=== PATIENT | female | born 1990 | race Caucasian/White ===

== ENCOUNTER → 2016-04-28 | Outpatient (REF) | payer BC | LOC: M LAB REF 18:03 | PROVIDERS: ATTEND Family Medicine | DX: Z12.4 Encounter for screening for malignant neoplasm of cervix (principal) ==

== ENCOUNTER → 2016-05-07 | Outpatient (REF) | payer BC | LOC: M LAB REF 10:06 | PROVIDERS: ATTEND Nurse Practitioner Family | DX: J02.9 Acute pharyngitis, unspecified (principal) ==

== ENCOUNTER → 2016-08-24 | Outpatient (REF) | payer BC | LOC: M LAB REF 16:20 | PROVIDERS: ATTEND Physician Assistant | DX: N39.0 Urinary tract infection, site not specified (principal) ==

== ENCOUNTER → 2016-10-09 | Outpatient (CLI) | payer BC ==
[2016-10-09 13:06] LABS: BASO % 0.7 % (0.0-1.0); EOS % 0.5 % (0.0-3.0); LARGE UNSTAINED CELL # 0.1 K/mm3 (0.0-0.4); LARGE UNSTAINED CELL % 1.7 % (0.0-4.0); LYMPH # 1.7 K/mm3 (1.5-6.5); LYMPH % 27.8 % (24.0-44.0); MEAN CORPUSCULAR HEMOGLOBIN 30.4 pg (27.0-33.0); MEAN CORPUSCULAR HGB CONC 33.5 g/dl (32.0-36.5); MEAN CORPUSCULAR VOLUME 90.7 fl (80.0-96.0); MONO # 0.5 K/mm3 (0.0-0.8); MONO % 8.3 % (0.0-5.0); NEUTROPHILS # 3.6 K/mm3 (1.8-7.7); NEUTROPHILS % 60.9 % (36.0-66.0); PLATELET COUNT, AUTOMATED 295 k/mm3 (150-450); WHITE BLOOD COUNT 5.8 K/mm3 (4.0-10.0)
[2016-10-09 13:31] LABS: ALBUMIN 4.2 GM/DL (3.2-5.2); ALKALINE PHOSPHATASE 39 U/L (45-117); ALT/SGPT 21 U/L (12-78); ANION GAP 6 MEQ/L (8-16); AST/SGOT 11 U/L (15-37); BILIRUBIN,TOTAL 0.5 MG/DL (0.2-1.0); BLOOD UREA NITROGEN 15 MG/DL (7-18); CALCIUM LEVEL 9.1 MG/DL (8.5-10.1); CARBON DIOXIDE LEVEL 25 MEQ/L (21-32); CHLORIDE LEVEL 105 MEQ/L (98-107); CREATININE FOR GFR 0.97 MG/DL (0.55-1.02); FREE T4 1.26 NG/DL (0.76-1.46); GLOMERULAR FILTRATION RATE > 60.0 (>60); GLUCOSE, FASTING 76 MG/DL (70-105); POTASSIUM SERUM 4.7 MEQ/L (3.5-5.1); SODIUM LEVEL 136 MEQ/L (136-145); TOTAL PROTEIN 7.2 GM/DL (6.4-8.2)
== END ==
LOC: M SMT 09:51
PROVIDERS: ATTEND Physician Assistant Medical
DX: F50.81 Binge eating disorder (principal); Z13.0 Encounter for screening for diseases of the blood and blood-forming organs and certain disorders involving the immune mechanism; Z13.29 Encounter for screening for other suspected endocrine disorder

== ENCOUNTER → 2016-12-11 | Outpatient (REF) | payer BC ==
[~2016-12-11] MED LIST: ALBU17IN2 INH; FLON1SPR; IPRASOL4 INH; PRED20TA PO; SYMB16INH INH; VYVA30CA4 PO; WELLTAB40 PO; ZYRT10TA2 PO
== END ==
LOC: M LAB REF 12:03
PROVIDERS: ATTEND Physician Assistant Medical
DX: N30.00 Acute cystitis without hematuria (principal)

== ENCOUNTER 2017-01-15 00:02 | Emergency (ER) | payer BC ==
[~2017-01-15] VITALS: Ht 167.6 cm; Wt 64.0 kg
[2017-01-15] MEDS ORDERED: SYMB16INH INH (01:02)
[2017-01-15] MEDS ORDERED: FLON1SPR (01:02)
[2017-01-15] MEDS ORDERED: ALBU17IN2 INH (01:02)
[2017-01-15] MEDS ORDERED: VYVA30CA4 PO (01:02)
[2017-01-15] MEDS ORDERED: ZYRT10TA2 PO (01:02)
[2017-01-15] MEDS ORDERED: WELLTAB40 PO (01:02)
[2017-01-15] MEDS ORDERED: IPRATROPIUM 0.5MG/ALBUTEROL 2.5MG INH SOL UD 3ML (DUONEB)(J7620) NEB ONE (01:45)
[2017-01-15] MEDS ORDERED: guaiFENesin SYRUP 200 MG/10 ML UDC PO ONE (01:45)
[2017-01-15] MEDS ORDERED: methylPREDNISolone INJ 125 MG/2 ML VIAL (J2930) IM ONE (01:45)
[2017-01-15 01:59] VITALS: BP 117/75
[2017-01-15] MEDS ORDERED: IPRASOL4 INH (02:22)
[2017-01-15] MEDS ORDERED: PRED20TA PO (02:22)
== END 2017-01-15 02:30 | disposition home or self-care (01) ==
LOC: M ED 00:02
DX: J98.01 Acute bronchospasm (principal); R51 Headache; J30.89 Other allergic rhinitis; J30.2 Other seasonal allergic rhinitis; Z79.899 Other long term (current) drug therapy
CPT/HCPCS: 94640; 96372; 99282; J2930

== ENCOUNTER → 2017-01-22 | Outpatient (REF) | payer BC | LOC: M LAB REF 16:12 | PROVIDERS: ATTEND Family Medicine | DX: D48.5 Neoplasm of uncertain behavior of skin (principal) ==

== ENCOUNTER → 2017-02-18 | Outpatient (REF) | payer BC ==
[2017-02-18 14:24] LABS: BASO % 0.5 % (0.0-1.0); EOS % 0.7 % (0.0-3.0); IMMATURE GRANULOCYTE % 0.3 % (0-0); LYMPH # 1.6 10^3/uL (1.5-6.5); LYMPH % 27.2 % (24.0-44.0); MEAN CORPUSCULAR HEMOGLOBIN 29.2 pg (27.0-33.0); MEAN CORPUSCULAR VOLUME 88.4 fl (80.0-96.0); MONO # 0.7 10^3/uL (0.0-0.8); MONO % 11.4 % (0.0-5.0); NEUTROPHILS # 3.6 10^3/uL (1.8-7.7); NEUTROPHILS % 59.9 % (36.0-66.0); PLATELET COUNT, AUTOMATED 314 10^3/uL (150-450)
[2017-02-18 14:59] LABS: ALBUMIN 3.9 GM/DL (3.2-5.2); ALKALINE PHOSPHATASE 49 U/L (45-117); ALT/SGPT 23 U/L (12-78); ANION GAP 7 MEQ/L (8-16); AST/SGOT 10 U/L (15-37); BILIRUBIN,TOTAL 0.3 MG/DL (0.2-1.0); BLOOD UREA NITROGEN 15 MG/DL (7-18); CALCIUM LEVEL 9.3 MG/DL (8.5-10.1); CARBON DIOXIDE LEVEL 29 MEQ/L (21-32); CHLORIDE LEVEL 105 MEQ/L (98-107); CREATININE FOR GFR 0.86 MG/DL (0.55-1.02); GLOMERULAR FILTRATION RATE > 60.0 (>60); GLUCOSE, FASTING 87 MG/DL (70-105); POTASSIUM SERUM 4.1 MEQ/L (3.5-5.1); SODIUM LEVEL 141 MEQ/L (136-145); TOTAL PROTEIN 6.9 GM/DL (6.4-8.2)
[2017-02-20 00:12] LABS: Lyme Disease IgG/IgM Antibodie <0.91 ISR (0.00-0.90); Lyme Disease IgM Ab Quantitati <0.80 index (0.00-0.79)
== END ==
LOC: M LAB REF 13:25
PROVIDERS: ATTEND Physician Assistant
DX: R51 Headache (principal)

== ENCOUNTER → 2017-04-09 | Outpatient (CLI) | payer BC ==
--- NOTE | 2017-04-09 09:11 | REP ---
RIGHT UPPER QUADRANT ULTRASOUND: Real-time sonographic evaluation of the right upper quadrant performed. Gallbladder demonstrates intraluminal sludge and stones. There is mild diffuse gallbladder wall thickening up to 4 mm. There is no free fluid. There is no intrahepatic or extrahepatic biliary dilatation, common bile duct measuring 4 mm in diameter. Liver and pancreas demonstrate homogenous echotexture with no definite mass. Right kidney demonstrates no hydronephrosis or nephrolithiasis with normal size at 10.9 cm in length. Visualized abdominal aorta is normal in caliber. IMPRESSION: Sludge and stones in the gallbladder without free fluid. There is mild diffuse gallbladder wall thickening. No biliary dilatation. Signed by Riaz Calzada MD 04/09/2017 04:56 P
== END ==
LOC: M RAD 08:02
PROVIDERS: ATTEND Physician Assistant
DX: R10.9 Unspecified abdominal pain (principal)

== ENCOUNTER 2017-05-25 06:35 | Day surgery (SDC) | payer BC ==
[2017-05-25] MEDS ORDERED: LIDOCAINE 1% MDV 20ML VIAL SQ (06:45)
[2017-05-25] MEDS: LR 1,000 ML IV (06:59)
[2017-05-25 07:05] LABS: CONTROL LINE UCG INT CTR LINE PRESENT; URINE PREG TEST NEGATIVE (NEGATIVE)
[2017-05-25] MEDS ORDERED: PROPOFOL 200 MG/20 ML VIAL As Ordered (07:18)
[2017-05-25] MEDS ORDERED: LIDOCAINE 2% INJ 100 MG/5 ML SDV (FOR ANES.) As Ordered (07:18)
[2017-05-25] MEDS ORDERED: ROCURONIUM BROMIDE 50 MG/5 ML VIAL As Ordered (07:18)
[2017-05-25] MEDS ORDERED: fentaNYL 250 MCG/5 ML INJECTION (J3010) As Ordered (07:18)
[2017-05-25] MEDS ORDERED: MIDAZOLAM INJ 2 MG/2 ML VIAL (J2250) As Ordered (07:19)
[2017-05-25] MEDS: CEFAZOLIN SOD 1 GM in APPROPRIATE DILUENT 1 EA IV (07:30)
[2017-05-25] MEDS ORDERED: ONDANSETRON 4MG/2ML VIAL (J2405) As Ordered (07:44)
[2017-05-25] MEDS ORDERED: KETOROLAC 60 MG/2 ML VIAL (J1885) As Ordered (07:44)
[2017-05-25] MEDS ORDERED: dexameTHASONE 4 MG/ML 1ML VIAL (J1100) As Ordered (07:44)
[2017-05-25] MEDS ORDERED: PHENYLephrine HCL 500 MCG/5 ML (100MCG/ML) SYRINGE (J2370) As Ordered (07:49)
[2017-05-25] MEDS ORDERED: GLYCOPYRROLATE INJ 0.2 MG/ML 2 ML VIAL As Ordered (07:50)
[2017-05-25] MEDS ORDERED: NEOSTIGMINE 10 MG/10 ML VIAL (J2710) As Ordered (07:50)
[2017-05-25] MEDS ORDERED: ePHEDrine INJ 50 MG/ML VIAL As Ordered (07:59)
[2017-05-25] MEDS: BUPIVACAINE HCL 0.25% 10 ML VIAL As Ordered (08:21)
[2017-05-25] MEDS: LIDOCAINE W/EPINEPHRINE 1% 20ML VIAL As Ordered (08:21)
[2017-05-25] MEDS ORDERED: HYDROmorphone HCL 2 MG/ML 1ML VIAL (J1170) As Ordered (08:24)
[2017-05-25] MEDS ORDERED: fentaNYL 100 MCG/2 ML INJECTION (J3010) IV (09:15)
[2017-05-25] MEDS ORDERED: LR 1,000 ML IV ×2 (09:15)
[2017-05-25] MEDS ORDERED: ONDANSETRON 4MG/2ML VIAL (J2405) IV ×2 (09:15)
[2017-05-25] MEDS ORDERED: MORPHINE 2 MG/ML 1ML SYRINGE IV (09:15)
[2017-05-25] MEDS ORDERED: PERCOCET 5MG/325MG TAB PO (09:15)
[2017-05-25] MEDS: NORCO, ANEXSIA 5/325MG TABLET (HYDROcodone/ACETAMINOPHEN) PO (09:18)
[2017-05-25] MEDS ORDERED: NEOSTIGMINE 10 MG/10 ML VIAL (J2710) (11:22)
[2017-05-25] MEDS ORDERED: KETOROLAC 30 MG/ML VIAL (J1885) IV (14:00)
== END 2017-05-25 11:30 | disposition home or self-care (01) ==
LOC: M SDC 06:35
DX: K80.10 Calculus of gallbladder with chronic cholecystitis without obstruction (principal); F32.9 Major depressive disorder, single episode, unspecified; F90.9 Attention-deficit hyperactivity disorder, unspecified type; M12.9 Arthropathy, unspecified; J45.909 Unspecified asthma, uncomplicated; Z79.899 Other long term (current) drug therapy; Z79.3 Long term (current) use of hormonal contraceptives
CPT/HCPCS: 47562

== ENCOUNTER → 2017-07-24 | Outpatient (REF) | payer BC | LOC: M LAB REF 09:54 | DX: N39.0 Urinary tract infection, site not specified (principal) | CPT/HCPCS: 87186 ==

== ENCOUNTER → 2018-01-24 | Outpatient (CLI) | payer BC | LOC: M WUC 11:25 | DX: J06.9 Acute upper respiratory infection, unspecified (principal); E55.9 Vitamin D deficiency, unspecified ==

== ENCOUNTER → 2018-02-10 | Outpatient (CLI) | payer BC ==
[2018-02-10 13:30] LABS: HCG, SERUM QUANTITATIVE < 1.0 MIU/ML
== END ==
LOC: M ADAMS 09:13
DX: N91.2 Amenorrhea, unspecified (principal)
CPT/HCPCS: 84702

== ENCOUNTER → 2018-03-23 | Outpatient (REF) | payer BC | LOC: M LAB REF 12:41 | DX: R30.0 Dysuria (principal) | CPT/HCPCS: 87086 ==

== ENCOUNTER → 2018-03-24 | Outpatient (CLI) | payer BC ==
[2018-03-24 13:58] LABS: BASO % 0.5 % (0.0-1.0); EOS # 0.2 10^3/uL (0.0-0.50); EOS % 3.1 % (0.0-3.0); HEMATOCRIT 41.8 % (36.0-47.0); HEMOGLOBIN 13.8 g/dl (12.0-15.5); IMMATURE GRANULOCYTE % 0.3 % (0-3.0); LYMPH # 2.1 10^3/uL (1.5-6.5); LYMPH % 26.4 % (24.0-44.0); MEAN CORPUSCULAR VOLUME 90.9 fl (80.0-96.0); MONO # 0.7 10^3/uL (0.0-0.8); MONO % 9.4 % (0.0-5.0); NEUTROPHILS # 4.7 10^3/uL (1.8-7.7); NEUTROPHILS % 60.3 % (36.0-66.0); PLATELET COUNT, AUTOMATED 352 10^3/uL (150-450); RED CELL DISTRIBUTION WIDTH 11.8 % (11.5-14.5); WHITE BLOOD COUNT 7.8 10^3/uL (4.0-10.0)
[2018-03-24 14:06] LABS: ALBUMIN 3.9 GM/DL (3.2-5.2); ALBUMIN/GLOBULIN RATIO 1.22 (1.00-1.93); ALKALINE PHOSPHATASE 67 U/L (45-117); ALT/SGPT 36 U/L (12-78); ANION GAP 7 MEQ/L (8-16); AST/SGOT 26 U/L (7-37); BILIRUBIN,TOTAL 0.5 MG/DL (0.2-1.0); BLOOD UREA NITROGEN 9 MG/DL (7-18); CALCIUM LEVEL 8.8 MG/DL (8.5-10.1); CARBON DIOXIDE LEVEL 27 MEQ/L (21-32); CHLORIDE LEVEL 105 MEQ/L (98-107); CREATININE FOR GFR 0.77 MG/DL (0.55-1.30); GLOMERULAR FILTRATION RATE > 60.0 (>60); GLUCOSE, FASTING 83 MG/DL (70-100); LIPASE 151 U/L (73-393); POTASSIUM SERUM 4.6 MEQ/L (3.5-5.1); SODIUM LEVEL 139 MEQ/L (136-145); TOTAL PROTEIN 7.1 GM/DL (6.4-8.2)
== END ==
LOC: M SMT 11:18
DX: R10.813 Right lower quadrant abdominal tenderness (principal)
CPT/HCPCS: 83690

== ENCOUNTER → 2019-02-13 | Outpatient (CLI) | payer BC ==
[~2019-02-13] MED LIST changes: +APRITAB; +BUPR150T3 PO; +IPRA0.00 INH; -IPRASOL4 INH; +SPIR50TA4; +ZYRT10CA5 PO; -ZYRT10TA2 PO
--- NOTE | 2019-02-13 11:04 | REP ---
Four views right hand: 02/13/2019. Indication: Right hand pain following trauma. Comparison: None. Findings: There is no acute fracture, subluxation or dislocation. Bony alignment is anatomic. No osseous destructive lesions are present. Impression: No acute fracture. Electronically Signed by Irvin Duran DO 02/13/2019 10:56 A
== END ==
LOC: M ADAMS 08:24
PROVIDERS: ATTEND Physician Assistant
DX: M79.641 Pain in right hand (principal)

== ENCOUNTER → 2019-02-18 | Outpatient (CLI) | payer BC | LOC: M LABDRWAD 08:24 | PROVIDERS: ATTEND Physician Assistant | DX: R11.0 Nausea (principal); R53.83 Other fatigue ==

== ENCOUNTER 2019-03-09 15:12 | Emergency (ER) | payer BC ==
[~2019-03-09] VITALS: Ht 167.6 cm; Wt 80.1 kg
[2019-03-09] MEDS ORDERED: ONDANSETRON 4MG/2ML VIAL (J2405) IV ONE (17:00)
[2019-03-09] MEDS ORDERED: NS 1,000 ML IV ONE (17:00)
[2019-03-09 17:24] LABS: BASO % 0.2 % (0.0-1.0); HEMATOCRIT 39.6 % (36.0-47.0); HEMOGLOBIN 13.3 g/dl (12.0-15.5); LYMPH # 0.5 10^3/uL (1.5-5.0); LYMPH % 7.7 % (24.0-44.0); MEAN CORPUSCULAR HEMOGLOBIN 29.9 pg (27.0-33.0); MEAN CORPUSCULAR HGB CONC 33.6 g/dl (32.0-36.5); MONO # 0.4 10^3/uL (0.0-0.8); MONO % 5.7 % (0.0-5.0); NEUTROPHILS # 5.6 10^3/uL (1.5-8.5); NEUTROPHILS % 86.2 % (36.0-66.0); PLATELET COUNT, AUTOMATED 231 10^3/uL (150-450); RED BLOOD COUNT 4.45 10^6/uL (4.00-5.40); WHITE BLOOD COUNT 6.5 10^3/uL (4.0-10.0)
[2019-03-09 17:56] LABS: ALBUMIN 3.8 GM/DL (3.2-5.2); ALT/SGPT 31 U/L (12-78); BILIRUBIN,DIRECT < 0.1 MG/DL (0.0-0.2); BILIRUBIN,TOTAL 0.4 MG/DL (0.2-1.0); LIPASE 83 U/L (73-393); TOTAL PROTEIN 7.1 GM/DL (6.4-8.2)
[2019-03-09 18:01] LABS: HCG, SERUM QUALITATIVE NEGATIVE (NEGATIVE)
[2019-03-09] MEDS ORDERED: ISOVUE-370 76% 100ML VIAL (Q9967) As Ordered ONE (18:07)
[2019-03-09] MEDS ORDERED: KETOROLAC 30 MG/ML VIAL (J1885) IV ONE (18:15)
--- NOTE | 2019-03-09 19:01 | REPVR ---
PROCEDURE INFORMATION: Exam: CT Abdomen And Pelvis With Contrast Exam date and time: 03/09/2019 6:02 PM Clinical history: 28 years old, female; Abdominal pain; Additional info: Lower abd pain/back pain TECHNIQUE: Imaging protocol: Computed tomography of the abdomen and pelvis with intravenous contrast. Radiation optimization: All CT scans at this facility use at least one of these dose optimization techniques: automated exposure control; mA and/or kV adjustment per patient size (includes targeted exams where dose is matched to clinical indication); or iterative reconstruction. Contrast material: ISOVUE 370; Contrast volume: 100 ml; Contrast route: IV; COMPARISON: No relevant prior studies available. FINDINGS: Lungs: Lung bases appear clear. Heart: The heart is normal in size. Liver: Normal appearing liver. Gallbladder and bile ducts: Surgical clips are noted in the gallbladder fossa and the patient is post cholecystectomy. Normal common bile duct. Pancreas: Normal appearing pancreas. Spleen: Normal spleen. Adrenals: Normal adrenal glands. Kidneys and ureters: Normal kidneys. Stomach and bowel: There are ecretions within loops of small bowel which may be secondary to mild ileus or enteritis. Appendix: Normal-appearing appendix. Small calcification distal end of the appendix. Intraperitoneal space: There is no evidence of pneumoperitoneum. Vasculature: There is opacification of the SMV and SMA. Lymph nodes: Unremarkable. No enlarged lymph nodes. Bladder: Normal urinary bladder. Reproductive: Normal size uterus. There are multiple follicular cysts both ovaries. Bones/joints: There is no evidence of bony abnormality. Soft tissues: Unremarkable. IMPRESSION: 1. Secretions within the small bowel could be the result of mild enteritis. 2. Follicular cysts identified both ovaries. Electronically signed by: Armando El On 03/09/2019 19:00:30 PM
[2019-03-09] MEDS ORDERED: ROBA750T4 PO ×2 (19:40→20:22)
[2019-03-09] MEDS ORDERED: DICY10CA13 PO ×2 (19:40→20:21)
[2019-03-09 19:47] VITALS: BP 138/68
== END 2019-03-09 19:56 | disposition home or self-care (01) ==
LOC: M ED 15:12
DX: R19.7 Diarrhea, unspecified (principal); M54.5 Low back pain; R10.9 Unspecified abdominal pain; N83.01 Follicular cyst of right ovary; N83.02 Follicular cyst of left ovary; J45.909 Unspecified asthma, uncomplicated; F32.9 Major depressive disorder, single episode, unspecified; Z79.51 Long term (current) use of inhaled steroids; Z79.899 Other long term (current) drug therapy
CPT/HCPCS: 74177; 80047; 80076; 81001; 83690; 84703; 85025; 86850; 86900; 86901; 96361; 96374; 96375; 99284; J1885; J2405; Q9967

== ENCOUNTER → 2019-07-25 | Outpatient (REF) | payer BC ==
[~2019-07-25] MED LIST changes: +DICY10CA13 PO; +ROBA750T4 PO
[2019-07-25 17:55] LABS: HEMATOCRIT 41.3 % (36.0-47.0); HEMOGLOBIN 13.6 g/dl (12.0-15.5); MEAN CORPUSCULAR HEMOGLOBIN 29.7 pg (27.0-33.0); MEAN CORPUSCULAR HGB CONC 32.9 g/dl (32.0-36.5); MEAN CORPUSCULAR VOLUME 90.2 fl (80.0-96.0); PLATELET COUNT, AUTOMATED 305 10^3/uL (150-450); RED BLOOD COUNT 4.58 10^6/uL (4.00-5.40); WHITE BLOOD COUNT 8.3 10^3/uL (4.0-10.0)
[2019-07-25 19:02] LABS: CHLAMYDIA DNA AMPLIFICATION NEGATIVE (NEGATIVE); GC DNA AMPLIFICATION NEGATIVE (NEGATIVE)
[2019-07-26 11:40] LABS: HEPATITIS B SURFACE ANTIGEN NEGATIVE (NEGATIVE); HEPATITIS C VIRUS ABY INDEX 0.1 INDEX (<0.8); HIV 1&2 SCREEN CENTAUR NEGATIVE (NEGATIVE); RUBELLA IgG QUALITATIVE IMMUNE (IMMUNE)
== END ==
LOC: M PLALAB 15:10
PROVIDERS: ATTEND Advanced Practice Midwife
DX: Z34.81 Encounter for supervision of other normal pregnancy, first trimester (principal); Z3A.00 Weeks of gestation of pregnancy not specified

== ENCOUNTER → 2019-10-17 | Outpatient (CLI) | payer BC ==
--- NOTE | 2019-10-17 12:06 | REP ---
OBSTETRIC SONOGRAPHY: HISTORY: Supervision of for anatomy. FINDINGS: Scanning through the gravid uterus demonstrates a single living intrauterine gestation in variable lie. motion is observed and heart rate is recorded at 143 beats per minute. A grade 1 anterior placenta is seen without evidence of previa or abruption. Amniotic fluid is subjectively normal. Closed cervical length is measured transabdominally and transvaginally at 3.4 cm. No extrauterine abnormalities observed. No anomaly is seen. The following anatomic structures are identified and felt to be sonographically unremarkable: cranium, choroid plexus, cavum, cerebellum posterior fossa, nuchal fold face and profile, four-chamber heart with left and right ventricular outflow tract views, diaphragm, left-sided stomach, abdominal wall cord insertion, three-vessel cord, kidneys and bladder, spine, upper and lower extremities. BIOMETRY CHART: BPD 4.3 cm = 18 weeks 6 days HC 16.3 cm = 19 weeks 1 day AC 13.4 cm = 18 weeks 6 days FL 3.1 cm = 19 weeks 3 days HL 3.0 cm = 19 weeks 5 days HC/AC ratio normal 1.22 Cephalic index normal 0.71. Estimated weight 276 grams, 0 pounds 9 ounces, 55th percentile for 18 weeks 6 days. IMPRESSION: Single living intrauterine gestation at 19 weeks 0 days by today's composite criteria. WOODY by today's sonography March 12, 2020.
== END ==
LOC: M WHC 07:56
PROVIDERS: ATTEND Advanced Practice Midwife
DX: Z34.82 Encounter for supervision of other normal pregnancy, second trimester (principal)

== ENCOUNTER → 2019-12-13 | Outpatient (REF) | payer BC ==
[~2019-12-13] MED LIST changes: +ACET-683 PO; +IBUP80TA PO
[2019-12-13 16:11] LABS: HEMATOCRIT 34.3 % (36.0-47.0); HEMOGLOBIN 11.4 g/dl (12.0-15.5); MEAN CORPUSCULAR HEMOGLOBIN 29.4 pg (27.0-33.0); MEAN CORPUSCULAR HGB CONC 33.2 g/dl (32.0-36.5); MEAN CORPUSCULAR VOLUME 88.4 fl (80.0-96.0); PLATELET COUNT, AUTOMATED 207 10^3/uL (150-450); RED BLOOD COUNT 3.88 10^6/uL (4.00-5.40); WHITE BLOOD COUNT 9.1 10^3/uL (4.0-10.0)
== END ==
LOC: M LAB REF 13:36 → M LABDRWAD 13:36
PROVIDERS: ATTEND Advanced Practice Midwife
DX: Z34.80 Encounter for supervision of other normal pregnancy, unspecified trimester (principal); Z3A.00 Weeks of gestation of pregnancy not specified

== ENCOUNTER → 2020-01-26 | Outpatient (CLI) | payer BC ==
[~2020-01-26] MED LIST changes: -ACET-683 PO; -IBUP80TA PO
[2020-01-26 17:12] LABS: HEMATOCRIT 37.5 % (36.0-47.0); MEAN CORPUSCULAR HEMOGLOBIN 28.1 pg (27.0-33.0); MEAN CORPUSCULAR VOLUME 87.8 fl (80.0-96.0); PLATELET COUNT, AUTOMATED 208 10^3/uL (150-450); RED BLOOD COUNT 4.27 10^6/uL (4.00-5.40); WHITE BLOOD COUNT 8.2 10^3/uL (4.0-10.0)
[2020-01-26 17:21] LABS: CREATININE,RANDOM URINE 55.5 MG/DL; TOTAL PROTEIN,RANDOM URINE 17.6 MG/DL (0.0-12.0)
[2020-01-26 17:22] LABS: ALT/SGPT 23 U/L (12-78); BILIRUBIN,TOTAL 0.2 MG/DL (0.2-1.0); CREATININE FOR GFR 0.61 MG/DL (0.55-1.30); GLOMERULAR FILTRATION RATE > 60.0 (>60); LDH LACTATE DEHYDROGENASE 143 U/L (84-246); URIC ACID 3.9 MG/DL (2.6-6.0)
== END ==
LOC: M WUC 10:20
PROVIDERS: ATTEND Advanced Practice Midwife
DX: O16.3 Unspecified maternal hypertension, third trimester (principal)

== ENCOUNTER → 2020-02-06 | Outpatient (CLI) | payer BC ==
[~2020-02-06] MED LIST changes: +ACET-683 PO; +IBUP80TA PO
--- NOTE | 2020-02-09 13:45 | REP ---
OBSTETRIC SONOGRAPHY HISTORY: Preeclampsia during . Third trimester study. FINDINGS: Scanning through the gravid uterus demonstrates a single living intrauterine gestation in a cephalic lie. Placenta is anterior grade 2 without evidence of previa. Amniotic fluid is subjectively normal. heart rate is recorded at 132 beats per minute. Amniotic fluid index (AUDREY) is normal at 15.1 cm. BIOMETRY CHART: BPD 8.2 cm 32 weeks 6 days Head circumference 31.2 cm 35 weeks 0 days Abdominal circumference 32.8 cm 36 weeks 5 days Femur length 7.0 cm 35 weeks 5 days Humeral length 6.4 cm 36 weeks 6 days AC/HC ratio 0.95 Normal Cephalic index 0.72 Normal Estimated weight 2774 grams, 6 pounds 1 ounce, 74th percentile for 34 weeks 6 days. IMPRESSION: Single intrauterine gestation at 35 weeks 3 days by todays composite criteria. Estimated date of delivery (WOODY) by todays sonography 03/09/2020. Estimated weight in the 74th percentile for 34 weeks 6 days. MTDD
== END ==
LOC: M WHC 07:27
PROVIDERS: ATTEND Advanced Practice Midwife
DX: O14.93 Unspecified pre-eclampsia, third trimester (principal); Z3A.35 35 weeks gestation of pregnancy

== ENCOUNTER 2020-02-09 10:56 | Outpatient (CLI) | payer BC ==
[~2020-02-09] VITALS: Ht 167.6 cm; Wt 97.4 kg
[~2020-02-09 10:56] MED LIST changes: -ACET-683 PO; -IBUP80TA PO
[2020-02-09 11:33] VITALS: BP 133/89
[2020-02-09 12:05] VITALS: BP 124/84
[2020-02-09 12:15] LABS: HEMATOCRIT 36.9 % (36.0-47.0); HEMOGLOBIN 12.1 g/dl (12.0-15.5); MEAN CORPUSCULAR HEMOGLOBIN 27.7 pg (27.0-33.0); MEAN CORPUSCULAR HGB CONC 32.8 g/dl (32.0-36.5); MEAN CORPUSCULAR VOLUME 84.4 fl (80.0-96.0); PLATELET COUNT, AUTOMATED 203 10^3/uL (150-450); RED BLOOD COUNT 4.37 10^6/uL (4.00-5.40); WHITE BLOOD COUNT 8.1 10^3/uL (4.0-10.0)
[2020-02-09 12:20] VITALS: BP 128/85
[2020-02-09 12:30] VITALS: BP 124/86
[2020-02-09 12:30] LABS: CREATININE,RANDOM URINE 46.2 MG/DL; TOTAL PROTEIN,RANDOM URINE 16.8 MG/DL (0.0-12.0)
[2020-02-09 12:33] LABS: ALBUMIN 2.6 GM/DL (3.2-5.2); ALT/SGPT 21 U/L (12-78); BILIRUBIN,TOTAL 0.2 MG/DL (0.2-1.0); BLOOD UREA NITROGEN 8 MG/DL (7-18); CALCIUM LEVEL 8.6 MG/DL (8.5-10.1); CARBON DIOXIDE LEVEL 22 MEQ/L (21-32); CHLORIDE LEVEL 108 MEQ/L (98-107); CREATININE FOR GFR 0.53 MG/DL (0.55-1.30); GLOMERULAR FILTRATION RATE > 60.0 (>60); GLUCOSE, FASTING 81 MG/DL (70-100); LDH LACTATE DEHYDROGENASE 165 U/L (84-246); SODIUM LEVEL 138 MEQ/L (136-145); URIC ACID 4.4 MG/DL (2.6-6.0)
[2020-02-09 12:45] VITALS: BP 140/84
--- NOTE | 2020-02-09 13:18 | IPNPDOC ---
Text Note Date of Service The patient was seen on 02/09/20. NOTE Outpatient 29yo WOODY 03/13/2020. Presents from office @ 35w2d for elevated blood pressures. Known preeclamptic. Denies headache, visual disturbances or chest pain. No distress, mild lower extremity edema DTR +2-+3 Fetus active, Cat I tracing, no UC Blood pressures here 124/86-140/84 Labs essentially unchanged from 01/25: CBC 8.1>12.1/36.9<203 PreE panel - creatinine blood 0.53, AST 16, ALT 21, urine acid 4.[address] Bruno aware. GBS obtained. Pt discharged to home with warnings. Keep appt next week. Scheduled for IOL 02/21/2020 VS,Rojeliobone, I+O VS, Fishbone, I+O Laboratory Tests 02/09/20 11:55 Vital Signs Date Time Temp Pulse Resp B/P (MAP) Pulse Ox O2 Delivery O2 Flow Rate FiO2 02/09/20 11:33 97.8 91 18 133/89 (104) Maria L Mercado CNM Feb 09, 2020 13:18
== END 2020-02-09 13:52 | disposition home or self-care (01) ==
LOC: M LDO 10:56
PROVIDERS: ATTEND Advanced Practice Midwife
DX: O14.93 Unspecified pre-eclampsia, third trimester (principal); R03.0 Elevated blood-pressure reading, without diagnosis of hypertension; Z3A.35 35 weeks gestation of pregnancy
CPT/HCPCS: 36415; 59025; 80053; 82247; 82565; 82570; 83615; 84156; 84450; 84460; 84550; 85027; G0378; G0463

== ENCOUNTER → 2020-02-19 | Outpatient (REF) | payer BC ==
[~2020-02-19] MED LIST changes: +ACET-683 PO; +IBUP80TA PO
== END ==
LOC: M SFHCWAGY 17:00
PROVIDERS: ATTEND Advanced Practice Midwife
DX: O14.93 Unspecified pre-eclampsia, third trimester (principal); Z3A.00 Weeks of gestation of pregnancy not specified

== ENCOUNTER 2020-02-21 06:35 | Inpatient (IN) | payer BC ==
[2020-02-21] VITALS (16 sets, daily range): BP systolic 116–163; BP diastolic 56–102
[~2020-02-21] VITALS: Ht 167.6 cm; Wt 97.7 kg
[~2020-02-21 06:35] MED LIST changes: -ACET-683 PO; -IBUP80TA PO
[2020-02-21 08:40] LABS: HEMATOCRIT 36.6 % (36.0-47.0); HEMOGLOBIN 11.7 g/dl (12.0-15.5); MEAN CORPUSCULAR HEMOGLOBIN 26.8 pg (27.0-33.0); MEAN CORPUSCULAR VOLUME 83.8 fl (80.0-96.0); PLATELET COUNT, AUTOMATED 186 10^3/uL (150-450); RED BLOOD COUNT 4.37 10^6/uL (4.00-5.40); WHITE BLOOD COUNT 8.1 10^3/uL (4.0-10.0)
[2020-02-21] MEDS: miSOPROStol 50 MCG 1/2 TAB (S0191) PO SCH ×4 (08:42→21:36)
[2020-02-21 09:03] LABS: ALT/SGPT 26 U/L (12-78); BILIRUBIN,TOTAL 0.3 MG/DL (0.2-1.0); CREATININE FOR GFR 0.61 MG/DL (0.55-1.30); GLOMERULAR FILTRATION RATE > 60.0 (>60); LDH LACTATE DEHYDROGENASE 142 U/L (84-246); URIC ACID 4.9 MG/DL (2.6-6.0)
[2020-02-22] VITALS (45 sets, daily range): BP systolic 116–180; BP diastolic 56–100
[2020-02-22] MEDS: miSOPROStol 50 MCG 1/2 TAB (S0191) PO SCH (01:42)
[2020-02-22] MEDS ORDERED: OXYTOCIN DRIP 30 UNITS in IV 1 EA IV SCH (10:30)
[2020-02-22] MEDS: LR 1,000 ML IV SCH ×2 (10:34→18:14)
--- NOTE | 2020-02-22 17:20 | IPNPDOC ---
Obstetrical Progress Note Date of Service Feb 22, 2020 Subjective Doing well. tolerating ctx. Pitocin at 12mU. Objective Vital Signs Date Time Temp Pulse Resp B/P (MAP) Pulse Ox O2 Delivery O2 Flow Rate FiO2 02/22/20 17:10 98.3 80 16 141/71 (94) Assessment Variability: Moderate Accelerations: Present Heart Rate Tracing: Category I Tocometer Contractions: Yes Frequency: regular Sterile Vaginal Examination Dilation: 1cm Effacement (%): 70% Station: -2 Cervical Consistency: Medium Cervical Position: Middle Postion/Presentation: Cephalic presentation (Cook cath placed 60/30ml) Assessment and Plan Age: 29 : 1 Status: Reassuring Group B Streptococcus: Negative Anticipate: Vaginal Delivery CONCHITA PIERCE MD. Feb 22, 2020 17:20
[2020-02-22] MEDS: ONDANSETRON 4MG/2ML VIAL IV SCH ×2 (17:47→22:00)
[2020-02-22 18:22] LABS: HEMATOCRIT 40.9 % (36.0-47.0); HEMOGLOBIN 13.2 g/dl (12.0-15.5); MEAN CORPUSCULAR HEMOGLOBIN 26.6 pg (27.0-33.0); MEAN CORPUSCULAR HGB CONC 32.3 g/dl (32.0-36.5); MEAN CORPUSCULAR VOLUME 82.5 fl (80.0-96.0); PLATELET COUNT, AUTOMATED 233 10^3/uL (150-450); RED BLOOD COUNT 4.96 10^6/uL (4.00-5.40)
[2020-02-23] VITALS (53 sets, daily range): BP systolic 113–168; BP diastolic 58–103
[2020-02-23] MEDS: ONDANSETRON 4MG/2ML VIAL IV SCH (02:00)
[2020-02-23 12:48] LABS: HEMATOCRIT 38.2 % (36.0-47.0); HEMOGLOBIN 12.5 g/dl (12.0-15.5); MEAN CORPUSCULAR HEMOGLOBIN 27.1 pg (27.0-33.0); MEAN CORPUSCULAR HGB CONC 32.7 g/dl (32.0-36.5); MEAN CORPUSCULAR VOLUME 82.7 fl (80.0-96.0); PLATELET COUNT, AUTOMATED 220 10^3/uL (150-450); RED BLOOD COUNT 4.62 10^6/uL (4.00-5.40); WHITE BLOOD COUNT 10.7 10^3/uL (4.0-10.0)
[2020-02-23] MEDS ORDERED: FENTANYL 2MCG/ML ROPIVACAINE 0.2% IN 0.9% NACL 100ML IVBAG As Ordered ONE (13:00)
[2020-02-23] MEDS ORDERED: diphenhydrAMINE 50MG/ML VIAL (J1200) IV PRN (14:30)
[2020-02-23] MEDS ORDERED: LACTATED RINGER'S 1000 ML IV PRN (14:30)
[2020-02-23] MEDS ORDERED: EPIDURAL COMMENT XX SCH (14:30)
[2020-02-23] MEDS ORDERED: ePHEDrine SULFATE 25 MG/5 ML(5MG/ML) SYRINGE IV PRN (14:30)
[2020-02-23] MEDS ORDERED: FENTANYL/ROPIVACAINE/NACL BAG 100 ML EPIDURAL SCH (14:30)
[2020-02-23] MEDS ORDERED: ONDANSETRON 4MG/2ML VIAL IV PRN (14:30)
[2020-02-23] MEDS ORDERED: EPIDURAL/PCA KEYS XX PRN (14:30)
[2020-02-23] MEDS ORDERED: REFRIGERATOR IV KEYS XX PRN (14:30)
[2020-02-23] MEDS ORDERED: NALOXONE INJ 0.4MG/1ML VIAL (J2310 PER 1MG) IV PRN (14:30)
--- NOTE | 2020-02-23 16:42 | IPNPDOC ---
Obstetrical Progress Note Date of Service Feb 23, 2020 Subjective Patient reports she is comfortable with her epidural. Objective Vital Signs Date Time Temp Pulse Resp B/P (MAP) Pulse Ox O2 Delivery O2 Flow Rate FiO2 02/23/20 14:01 97.3 79 16 131/65 (87) Assessment Heart Rate (FHR): 120 Variability: Moderate Accelerations: Positive Decelerations: None Heart Rate Tracing: Category I Tocometer Contractions: Yes Frequency: regular Sterile Vaginal Examination Dilation: 9 cm Effacement (%): 100% Station: +1 Postion/Presentation: Cephalic presentation Assessment and Plan Status: Reassuring Anticipate: Vaginal Delivery Additional Comments IV Pitocin is at 10 mu/min. SURENDRA AVERY CNM Feb 23, 2020 16:42
[2020-02-23] MEDS ORDERED: OXYTOCIN DRIP 30 UNITS in IV 1 EA IV SCH (18:59)
[2020-02-23] MEDS ORDERED: RHOGAM 300 MCG (1500 IU) INJ (J2790) IM SCH (19:00)
[2020-02-23] MEDS ORDERED: IBUPROFEN 800 MG TAB PO PRN (19:00)
[2020-02-23] MEDS ORDERED: MEASLES,MUMPS,RUBELLA VACCINE INJ (MMR-II) (90707) SC SCH (19:00)
[2020-02-23] MEDS ORDERED: DIBUCAINE 1% OINTMENT 30GM TOP PRN (19:00)
[2020-02-23] MEDS ORDERED: ACETAMINOPHEN 500 MG TAB PO PRN (19:00)
[2020-02-23] MEDS ORDERED: IBUPROFEN 600MG TAB PO PRN (19:00)
[2020-02-23] MEDS ORDERED: MOM 30ML SUSPENSION UDC PO PRN (19:00)
[2020-02-23] MEDS ORDERED: ACETAMINOPHEN TAB 650MG DOSE (2X325MG) PO PRN (19:00)
[2020-02-23] MEDS ORDERED: DOCUSATE SODIUM 100 MG CAP PO PRN (19:00)
[2020-02-23] MEDS ORDERED: ANUSOL HC CREAM 30GM TOP PRN (19:00)
--- NOTE | 2020-02-23 19:04 | DNPDOC ---
[facility] Delivery Note Delivery Note DATE OF DELIVERY: 02/23/20 at 1823 PREDELIVERY DIAGNOSIS: 37-2/7 weeks' gestation. POST DELIVERY DIAGNOSIS: Delivered. PROCEDURE: Spontaneous vaginal delivery. Spectrographic Analyst: Surendra Henriquez CNM, ELBA ANESTHESIA: epidural. ESTIMATED BLOOD LOSS: 300 mL. FINDINGS: 6 pounds 10 ounces; 3010 grams; female , Score 8/9, nuchal cord times 1 loose, preeclampsia. DELIVERY SUMMARY: Patient is a 29-year-old female who is a who presented to L&D at 37 weeks gestation for induction of labor for preeclampsia. She received 5 doses of Cytotec, a mckay bulb, and IV Pitocin for induction. Sally requested an epidural for pain management. She progressed to fully dilated at 1714 and pushed to a living female in the ESTELITA position with restitution to LOT. A nuchal cord was noted and reduced. The anterior shoulder delivered with ease and the corpus immediately followed at 1823. The baby was placed on the maternal abdomen active and crying. The cord was clamped x2 after pulsation ceased and cut by the FOB. A 3-vessel cord was noted. The placenta delivered spontaneously and intact at 1834. Uterine hemostasis was achieved via rapid infusion of IV Pitocin and fundal massage. The vagina, cervix, and perineum was inspected and found to have a first degree perineal laceration that was repaired with a 3.[address]-1. A left vaginal was tear was noted and not repaired due to good hemostasis. Mom plans to breastfeed. They are naming her Gabriela. All i nstruments, sharps and sponges are accounted for. Both mom and baby are in stable condition. SURENDRA HENRIQUEZ CNM Feb 23, 2020 19:04
[2020-02-24 01:50] VITALS: BP 109/60
[2020-02-24 06:18] VITALS: BP 116/66
--- NOTE | 2020-02-24 08:21 | IPNPDOC ---
Progress Note Date of Service: Feb 24, 2020 Day#: 1 Progress Note SUBJECT: Sally is a 29-year-old female who is day 1 after an induction of labor for preeclampsia. She denies any preeclamptic symptoms. She has been ambulating, voiding spontaneously without issue and tolerating regular diet. Breast feeding without issue. OBJECTIVE: VITAL SIGNS: Within normal limits, afebrile. Alert and oriented times three. Breath sounds clear to auscultation. Abdomen: Fundus firm at U-. Soft, NTTP. Minimal lochia. ASSESSMENT: Day 1 PLAN: 1. Continue supportive nursing care. 2. Anticipate discharge to home tomorrow. 3. Continue to monitor for signs of preeclampsia. VS, I&O, 24H, Fishbone Vital Signs/I&O Vital Signs Date Time Temp Pulse Resp B/P (MAP) Pulse Ox O2 Delivery O2 Flow Rate FiO2 02/24/20 06:18 98.2 83 17 116/66 (83) 02/23/20 20:30 97 Room Air I&O- Last 24 Hours up to 6 AM 02/24/20 06:00 Intake Total 1240 ml Output Total 2500 ml Balance -1260 ml Laboratory Data 24H LABS Laboratory Tests 2 02/23/20 12:37: Nucleated Red Blood Cells % (auto) 0.0 CBC/BMP Laboratory Tests 02/23/20 12:37 SURENDRA AVERY CNM Feb 24, 2020 08:21
[2020-02-24] MEDS: PRENATAL VITAMINS CHEWABLE TABLET PO SCH (08:30)
[2020-02-24] MEDS: buPROPion 75 MG TAB PO SCH (08:30)
[2020-02-24 18:12] VITALS: BP 155/84
[2020-02-25] MEDS ORDERED: IBUP80TA PO (08:15)
[2020-02-25] MEDS ORDERED: ACET-683 PO (08:15)
[2020-02-25] MEDS: PRENATAL VITAMINS CHEWABLE TABLET PO SCH (08:18)
[2020-02-25] MEDS: buPROPion 75 MG TAB PO SCH (08:18)
[2020-02-25 09:23] VITALS: BP 136/74
== END 2020-02-25 11:30 | disposition home or self-care (01) | DRG 560 ==
LOC: M LDI 06:35 → M OBS 02-23 20:13
PROVIDERS: ADMIT Obstetrics & Gynecology; ATTEND Obstetrics & Gynecology
PROC: 3E0DXGC Introduction of Other Therapeutic Substance into Mouth and Pharynx, External Approach (ICD-10-PCS; 2020-02-21)
PROC: 3E033VJ Introduction of Other Hormone into Peripheral Vein, Percutaneous Approach (ICD-10-PCS; 2020-02-21)
PROC: 10E0XZZ Delivery of Products of Conception, External Approach (ICD-10-PCS; principal; 2020-02-23)
PROC: 0HQ9XZZ Repair Perineum Skin, External Approach (ICD-10-PCS; 2020-02-23)
DX: O14.94 Unspecified pre-eclampsia, complicating childbirth (principal); O69.81X0 Labor and delivery complicated by cord around neck, without compression, not applicable or unspecified; Z37.0 Single live birth; Z3A.37 37 weeks gestation of pregnancy; O70.0 First degree perineal laceration during delivery

== ENCOUNTER → 2020-08-14 | Outpatient (REF) | payer BC ==
[~2020-08-14] MED LIST changes: +ACET-683 PO; +BUPR150T12 PO; -BUPR150T3 PO; +IBUP80TA PO
== END ==
LOC: M SFHCWAGY 13:33
PROVIDERS: ATTEND Advanced Practice Midwife
DX: Z12.4 Encounter for screening for malignant neoplasm of cervix (principal); Z01.419 Encounter for gynecological examination (general) (routine) without abnormal findings; Z77.9 Other contact with and (suspected) exposures hazardous to health

== ENCOUNTER → 2020-09-04 | Outpatient (REF) | payer BC | LOC: M SFHCWAGY 13:17 | PROVIDERS: ATTEND Obstetrics & Gynecology | DX: R87.610 Atypical squamous cells of undetermined significance on cytologic smear of cervix (ASC-US) (principal) ==

== ENCOUNTER → 2020-11-12 | Outpatient (REF) | payer BC | LOC: M LAB REF 09:20 | PROVIDERS: ATTEND Family Medicine | DX: R19.7 Diarrhea, unspecified (principal) ==

== ENCOUNTER → 2021-01-16 | Outpatient (CLI) | payer BC | LOC: M WUC 12:06 | PROVIDERS: ATTEND Nurse Practitioner | DX: R19.7 Diarrhea, unspecified (principal); R12 Heartburn ==

== ENCOUNTER → 2021-02-17 | Outpatient (CLI) | payer BC | LOC: M WUC 09:46 | PROVIDERS: ATTEND Physician Assistant | DX: Z02.1 Encounter for pre-employment examination (principal) ==

== ENCOUNTER → 2021-05-25 | Outpatient (REF) | payer BC | LOC: M LAB REF 08:00 | PROVIDERS: ATTEND Nurse Practitioner | DX: R19.7 Diarrhea, unspecified (principal) ==

== ENCOUNTER → 2021-05-27 | Outpatient (CLI) | payer BC | LOC: M WUC 08:02 | PROVIDERS: ATTEND Nurse Practitioner | DX: R19.7 Diarrhea, unspecified (principal) ==

== ENCOUNTER → 2021-06-08 | Outpatient (CLI) | payer BC ==
[2021-06-08 08:40] LABS: BASO % 0.5 % (0.0-1.0); EOS # 0.1 10^3/uL (0.0-0.5); EOS % 1.3 % (0.0-3.0); HEMATOCRIT 40.6 % (36.0-47.0); HEMOGLOBIN 13.4 g/dl (12.0-15.5); LYMPH # 1.6 10^3/uL (1.5-5.0); LYMPH % 28.9 % (24.0-44.0); MEAN CORPUSCULAR HEMOGLOBIN 28.8 pg (27.0-33.0); MEAN CORPUSCULAR VOLUME 87.1 fl (80.0-96.0); MONO # 0.6 10^3/uL (0.0-0.8); MONO % 10.7 % (2.0-8.0); NEUTROPHILS # 3.3 10^3/uL (1.5-8.5); NEUTROPHILS % 58.4 % (36.0-66.0); PLATELET COUNT, AUTOMATED 308 10^3/uL (150-450); RED BLOOD COUNT 4.66 10^6/uL (4.00-5.40); WHITE BLOOD COUNT 5.6 10^3/uL (4.0-10.0)
[2021-06-08 09:03] LABS: ALBUMIN 3.8 GM/DL (3.2-5.2); ALT/SGPT 27 U/L (12-78); BILIRUBIN,TOTAL 0.5 MG/DL (0.2-1.0); BLOOD UREA NITROGEN 14 MG/DL (7-18); CARBON DIOXIDE LEVEL 28 MEQ/L (21-32); CHLORIDE LEVEL 107 MEQ/L (98-107); CHOLESTEROL LEVEL 229 MG/DL (<200); CHOLESTEROL RISK RATIO 4.089 (<5); CREATININE FOR GFR 1.01 MG/DL (0.55-1.30); FREE T4 1.25 NG/DL (0.76-1.46); GLOMERULAR FILTRATION RATE > 60.0 (>60); GLUCOSE, FASTING 81 MG/DL (70-100); HDL CHOLESTEROL 56 MG/DL (>40); LDL CHOLESTEROL 157 MG/DL (<100); NON-HDL-C 173 MG/DL; POTASSIUM SERUM 4.5 MEQ/L (3.5-5.1); SODIUM LEVEL 141 MEQ/L (136-145); TRIGLYCERIDES LEVEL 82 MG/DL (<150)
== END ==
LOC: M LAB 08:12
PROVIDERS: ATTEND Family Medicine
DX: Z13.220 Encounter for screening for lipoid disorders (principal)

== ENCOUNTER → 2021-07-08 | Outpatient (CLI) | payer BC | LOC: M WUC 08:18 | PROVIDERS: ATTEND Family Medicine | DX: E55.9 Vitamin D deficiency, unspecified (principal) ==

== ENCOUNTER → 2021-07-14 | Outpatient (REF) | LOC: M LABSMTC 10:40 | PROVIDERS: ATTEND Family Medicine | DX: Z20.822 Contact with and (suspected) exposure to COVID-19 (principal) ==

== ENCOUNTER → 2021-12-11 | Outpatient (REF) | payer BC | LOC: M LAB REF 19:20 | PROVIDERS: ATTEND Family Medicine | DX: R19.7 Diarrhea, unspecified (principal) ==

== ENCOUNTER → 2022-01-26 | Outpatient (REF) ==
[2022-01-26 13:50] LABS: RSV AMPLIFICATION NEGATIVE (NEGATIVE)
== END ==
LOC: M EMP 09:32
PROVIDERS: ATTEND Family Medicine
DX: Z11.52 Encounter for screening for COVID-19 (principal)

== ENCOUNTER → 2022-02-13 | Outpatient (REF) | LOC: M EMP 08:31 | PROVIDERS: ATTEND Family Medicine | DX: Z20.828 Contact with and (suspected) exposure to other viral communicable diseases (principal); Z11.59 Encounter for screening for other viral diseases ==

== ENCOUNTER → 2022-03-06 | Outpatient (CLI) | payer BC ==
[~2022-03-06] MED LIST changes: +GLUCAGON INJ 1MG VIAL As Ordered ONE; +ISOVUE-370 76% 100ML VIAL As Ordered ONE; +NEULUMEX 0.1% SUSPENSION 450ML BOTTLE (FORMERLY VOLUMEN) As Ordered ONE
== END ==
LOC: M RAD 12:17
PROVIDERS: ATTEND Internal Medicine Gastroenterology
DX: K58.0 Irritable bowel syndrome with diarrhea (principal); K44.9 Diaphragmatic hernia without obstruction or gangrene
CPT/HCPCS: 74177; J1610

== ENCOUNTER → 2022-04-29 | Outpatient (REF) ==
[~2022-04-29] MED LIST changes: -GLUCAGON INJ 1MG VIAL As Ordered ONE; -ISOVUE-370 76% 100ML VIAL As Ordered ONE; -NEULUMEX 0.1% SUSPENSION 450ML BOTTLE (FORMERLY VOLUMEN) As Ordered ONE
[2022-04-29 16:31] LABS: RSV AMPLIFICATION NEGATIVE (NEGATIVE)
== END ==
LOC: M EMP 08:42
PROVIDERS: ATTEND Family Medicine
DX: Z20.818 Contact with and (suspected) exposure to other bacterial communicable diseases (principal)

== ENCOUNTER → 2022-05-09 | Outpatient (REF) | payer BC | LOC: M LAB REF 10:22 | PROVIDERS: ATTEND Family Medicine | DX: R19.7 Diarrhea, unspecified (principal); K44.9 Diaphragmatic hernia without obstruction or gangrene; R12 Heartburn; K58.9 Irritable bowel syndrome, unspecified ==

== ENCOUNTER → 2022-07-17 | Outpatient (REF) | payer BC ==
[2022-07-20 13:47] LABS: GC DNA AMPLIFICATION NEGATIVE (NEGATIVE)
== END ==
LOC: M SFHCWAGY 10:15
PROVIDERS: ATTEND Advanced Practice Midwife
DX: Z12.4 Encounter for screening for malignant neoplasm of cervix (principal); Z11.3 Encounter for screening for infections with a predominantly sexual mode of transmission
CPT/HCPCS: 87624; 87661; 87810; 87850; G0123

== ENCOUNTER → 2023-02-04 | Outpatient (REF) ==
[~2023-02-04] MED LIST changes: +DICY-61 PO; -DICY10CA13 PO
== END ==
LOC: M EMP 08:54
PROVIDERS: ATTEND Family Medicine
DX: Z11.52 Encounter for screening for COVID-19 (principal)

== ENCOUNTER → 2023-02-24 | Outpatient (REF) ==
[2023-02-24 09:59] LABS: RSV AMPLIFICATION NEGATIVE (NEGATIVE)
== END ==
LOC: M EMP 09:01
PROVIDERS: ATTEND Family Medicine
DX: Z11.52 Encounter for screening for COVID-19 (principal)

== ENCOUNTER → 2023-03-29 | Outpatient (REF) | LOC: M EMP 09:01 | PROVIDERS: ATTEND Family Medicine | DX: Z11.52 Encounter for screening for COVID-19 (principal) ==

== ENCOUNTER → 2023-03-30 | Outpatient (REF) | LOC: M EMP 09:19 | PROVIDERS: ATTEND Family Medicine | DX: Z11.52 Encounter for screening for COVID-19 (principal) ==

== ENCOUNTER → 2024-01-04 | Outpatient (REF) | payer BC ==
[2024-01-04 13:50] LABS: BASO % 0.4 % (0.0-1.0); EOS # 0.1 10^3/uL (0.0-0.5); EOS % 1.5 % (0.0-3.0); HEMATOCRIT 41.5 % (36.0-47.0); HEMOGLOBIN 13.6 g/dl (12.0-15.5); LYMPH # 1.7 10^3/uL (1.5-5.0); LYMPH % 24.8 % (24.0-44.0); MEAN CORPUSCULAR HEMOGLOBIN 29.5 pg (27.0-33.0); MEAN CORPUSCULAR HGB CONC 32.8 g/dl (32.0-36.5); MONO # 0.6 10^3/uL (0.0-0.8); MONO % 8.5 % (2.0-8.0); NEUTROPHILS # 4.3 10^3/uL (1.5-8.5); NEUTROPHILS % 64.4 % (36.0-66.0); PLATELET COUNT, AUTOMATED 372 10^3/uL (150-450); RED BLOOD COUNT 4.61 10^6/uL (4.00-5.40); WHITE BLOOD COUNT 6.7 10^3/uL (4.0-10.0)
[2024-01-04 13:51] LABS: ALBUMIN 4.1 G/DL (3.2-5.2); ALKALINE PHOSPHATASE 56 U/L (46-116); ALT/SGPT 29 U/L (7.0-40); AST/SGOT 16 U/L (<34); BILIRUBIN,TOTAL 0.6 MG/DL (0.3-1.2); BLOOD UREA NITROGEN 18 MG/DL (9-23); CALCIUM LEVEL 10.2 MG/DL (8.5-10.1); CARBON DIOXIDE LEVEL 29 MMOL/L (20-31); CHLORIDE LEVEL 106 MMOL/L (98-107); CHOLESTEROL LEVEL 211 MG/DL (<200); CHOLESTEROL RISK RATIO 3.16 (<5); CREATININE FOR GFR 0.83 MG/DL (0.55-1.30); GLOMERULAR FILTRATION RATE > 60.0 (>60); GLUCOSE, FASTING 91 MG/DL (60-100); HDL CHOLESTEROL 66.6 MG/DL (>40); NON-HDL-C 144.4 MG/DL; POTASSIUM SERUM 4.2 MMOL/L (3.5-5.1); SODIUM LEVEL 141 MMOL/L (136-145); TOTAL PROTEIN 7.3 G/DL (5.7-8.2); TRIGLYCERIDES LEVEL 187 MG/DL (<150)
[2024-01-04 13:55] LABS: THYROID STIMULATING HORMONE 4.123 uIU/ML (0.55-4.78)
== END ==
LOC: M LABDRWAD 13:02
PROVIDERS: ATTEND Nurse Practitioner Adult Health
DX: Z13.220 Encounter for screening for lipoid disorders (principal); Z13.0 Encounter for screening for diseases of the blood and blood-forming organs and certain disorders involving the immune mechanism; Z13.29 Encounter for screening for other suspected endocrine disorder

== ENCOUNTER → 2024-02-03 | Outpatient (REF) | payer BC ==
[2024-02-03 14:03] LABS: BASO % 0.6 % (0.0-1.0); EOS # 0.1 10^3/uL (0.0-0.5); EOS % 1.5 % (0.0-3.0); HEMATOCRIT 42.1 % (36.0-47.0); HEMOGLOBIN 13.9 g/dl (12.0-15.5); LYMPH # 1.7 10^3/uL (1.5-5.0); LYMPH % 32.4 % (24.0-44.0); MEAN CORPUSCULAR HEMOGLOBIN 29.8 pg (27.0-33.0); MEAN CORPUSCULAR VOLUME 90.1 fl (80.0-96.0); MONO # 0.5 10^3/uL (0.0-0.8); MONO % 9.5 % (2.0-8.0); NEUTROPHILS # 2.9 10^3/uL (1.5-8.5); NEUTROPHILS % 55.6 % (36.0-66.0); PLATELET COUNT, AUTOMATED 328 10^3/uL (150-450); RED BLOOD COUNT 4.67 10^6/uL (4.00-5.40); WHITE BLOOD COUNT 5.3 10^3/uL (4.0-10.0)
[2024-02-03 14:08] LABS: ERYTHROCYTE SEDIMENTATION RATE 8 mm/hr (0-20)
[2024-02-03 14:25] LABS: C REACTIVE PROTEIN QUANTITATIV < 0.40 MG/DL (<1.0); URIC ACID 5.2 MG/DL (3.1-7.8)
[2024-02-03 14:28] LABS: RHEUMATOID FACTOR QUANT 6.5 IU/ML (<14)
[2024-02-03 14:29] LABS: TOTAL 25(OH) VITAMIN D 53.4 NG/ML (20.0-100.0)
[2024-02-07 16:22] LABS: ANA SCREEN, IFA NEGATIVE (NEGATIVE)
[2024-02-08 00:48] LABS: CYCLIC CITRULLINATED PEPTIDE < 16 UNITS (<20)
[2024-02-08 19:08] LABS: LYME TOTAL ANTIBODY CIA <= 0.90 Index (<=0.90)
== END ==
LOC: M LABDRWAD 13:11
PROVIDERS: ATTEND Nurse Practitioner Adult Health
DX: M25.50 Pain in unspecified joint (principal)

== ENCOUNTER → 2024-08-05 | Outpatient (CLI) | payer BC ==
[2024-08-05 11:16] LABS: BASO % 0.6 % (0.0-1.0); EOS # 0.1 10^3/uL (0.0-0.5); EOS % 0.9 % (0.0-3.0); HEMATOCRIT 39.8 % (36.0-47.0); HEMOGLOBIN 13.6 g/dl (12.0-15.5); LYMPH # 2.2 10^3/uL (1.5-5.0); LYMPH % 34.5 % (24.0-44.0); MEAN CORPUSCULAR HEMOGLOBIN 29.7 pg (27.0-33.0); MEAN CORPUSCULAR HGB CONC 34.2 g/dl (32.0-36.5); MEAN CORPUSCULAR VOLUME 86.9 fl (80.0-96.0); MONO # 0.7 10^3/uL (0.0-0.8); MONO % 10.1 % (2.0-8.0); NEUTROPHILS # 3.5 10^3/uL (1.5-8.5); NEUTROPHILS % 53.7 % (36.0-66.0); PLATELET COUNT, AUTOMATED 307 10^3/uL (150-450); RED BLOOD COUNT 4.58 10^6/uL (4.00-5.40); WHITE BLOOD COUNT 6.4 10^3/uL (4.0-10.0)
[2024-08-05 11:23] LABS: ERYTHROCYTE SEDIMENTATION RATE 3 mm/hr (0-20)
[2024-08-05 11:43] LABS: C REACTIVE PROTEIN QUANTITATIV < 0.50 MG/DL (<1.0)
[2024-08-05 11:44] LABS: ALBUMIN 4.3 G/DL (3.2-5.2); ALKALINE PHOSPHATASE 50 U/L (35-104); ALT/SGPT 38 U/L (7.0-40); AST/SGOT 16 U/L (<34); BILIRUBIN,TOTAL 0.5 MG/DL (0.3-1.2); BLOOD UREA NITROGEN 12 MG/DL (9-23); CARBON DIOXIDE LEVEL 27 MMOL/L (20-31); CHLORIDE LEVEL 102 MMOL/L (98-107); CREATININE FOR GFR 0.88 MG/DL (0.55-1.30); GLOMERULAR FILTRATION RATE 87.3 (>60); GLUCOSE, FASTING 77 MG/DL (60-100); POTASSIUM SERUM 4.5 MMOL/L (3.5-5.1); SODIUM LEVEL 140 MMOL/L (136-145); TOTAL PROTEIN 7.3 G/DL (5.7-8.2)
[2024-08-05 11:45] LABS: THYROID STIMULATING HORMONE 3.032 uIU/ML (0.55-4.78)
[2024-08-05 11:46] LABS: FREE T4 1.41 NG/DL (0.89-1.76)
== END ==
LOC: M RAD 08:41
PROVIDERS: ATTEND Physician Assistant
DX: R06.00 Dyspnea, unspecified (principal); R07.9 Chest pain, unspecified